=== PATIENT | male | born 1960 | race Caucasian/White ===

== ENCOUNTER → 2017-10-07 | Day surgery (SDC) | payer OTHER ==
[~2017-10-07] MED LIST: ASPI-630 PO; ATOR20TA58 PO; LEVO50TA5 PO; LIDOCAINE 1%/EPI 1:100,000 20 ML VIAL. INJ ONE; OMEG-131 PO
[2017-10-07 09:55] VITALS: BP 147/99
--- NOTE | 2017-10-07 11:29 | PDOC4 ---
Operative Note Operative Note Date: 10/07/2017 Preoperative diagnosis: Left shoulder mass Postoperative diagnosis: Same Procedure: Excision of mass Surgeon: Gregory Dictation: Patient is a 57-year-old male complaining of an enlarging mass on his left shoulder procedure of excision was explained to the patient detail was benefits were also discussed including bleeding infection alternatives to this procedure also discussed with patient seemed understanding gave both verbal and written consent had procedure performed. Patient was in the minor was room area on his left shoulder was prepped and draped usual sterile fashion using ChloraPrep area was injected with 1% lidocaine with epinephrine once this completely anesthetized incision made 15 blade scalpel and the sebaceous cyst was sharply excised using Metzenbaum scissors the wound was then closed in a single layer running 40 septic or Monocryl and Dermabond was applied as a sealant and dressed with a island dressing. Patient tolerated procedure well was discharged home in stable condition estimated blood loss less than 5 mL ZORA ESTRADA MD Oct 07, 2017 11:29
--- NOTE | 2017-10-12 15:09 | PATHOLOGY ---
[facility] Accession Number: [id number] . 01 Material submitted: . LEFT SHOULDER MASS . 01 Clinical history: . None provided . 02 Diagnosis: Skin, left shoulder mass, excision: - Epidermal inclusion cyst. [facility]/10/10/2017 . 02 Comment: There is no evidence of malignancy. . (JPM:mml; 10/10/17) . 02 Electronically signed: . Joshua Fitzgerald MD, Pathologist NPI- [id number] . 01 Gross description: . The specimen is received in formalin, labeled "Brian Rosi, left shoulder mass". Received is a segment of pale tolbert cystic tissue admixed with white-tolbert friable material measuring 2.1 x 1.7 x 0.5 cm in aggregate dimensions. The specimen is submitted entirely in cassette A1. ([facility]; 10/08/2017) QAC/QAC . 02 Pathologist provided ICD-10: L72.0 . 02 CPT . 138041 Performed at: 01 [facility] [address], [place] [id number] MD Amadeo Bhatti MD Phone: [phone] Performed at: 02 [facility] [address] [place], [place] [id number] MD Joshua Fitzgerald MD Phone: [phone]
== END | disposition home or self-care (01) ==
LOC: SURG 09:00
PROVIDERS: ATTEND Surgery
DX: L72.0 Epidermal cyst (principal); E03.9 Hypothyroidism, unspecified; E78.00 Pure hypercholesterolemia, unspecified; E78.6 Lipoprotein deficiency; Z79.82 Long term (current) use of aspirin; Z79.899 Other long term (current) drug therapy; Z98.890 Other specified postprocedural states; Z88.2 Allergy status to sulfonamides
CPT/HCPCS: 11402; J3490